=== PATIENT | female | born 1990 | race Caucasian/White ===

== ENCOUNTER 2023-11-25 03:13 | Emergency (ER) | payer OTHER, SELFPAY ==
[2023-11-25 03:20] VITALS: BP 126/94; PULSE 105; RESP 18; TEMP 36.1; O2SAT 99
--- NOTE | 2023-11-25 03:21 | ED.FEMALEGU ---
HPI - Female Genitourinary General Chief complaint: Urogenital-Female Stated complaint: STD Check Time Seen by Provider: 11/25/23 03:21 Source: patient Mode of arrival: ambulatory Limitations: no limitations History of Present Illness HPI Narrative: 32-year-old female presents the stating that her boyfriend tested positive for trichomoniasis. Patient does not have any symptoms but would like to be treated she has had bilateral tubal ligation. She denies prior ST eye. No lesions noted on genitalia. Vaginal discharge: none Vaginal bleeding: none Associated symptoms: denies other symptoms Treatment prior to arrival: none Sexual activity: Yes Patient : No Related Data Home Medications Medication Instructions Recorded Confirmed venlafaxine 150 mg 150 mg PO DAILY 11/25/23 11/25/23 capsule,extended release 24 hr Allergies Allergy/AdvReac Type Severity Reaction Status Date / Time No Known Allergies Allergy Verified 11/25/23 03:20 Review of Systems Review of Systems: All systems reviewed & are unremarkable except as noted in HPI and below PMFSH Past Medical History Medical History (Updated 11/25/23 @ 03:59 by Harman Huntley MD) Depression Exam Const: General: healthy appearing, no acute distress and alert Nutritional Appearance: well nourished Orientation/consciousness: patient oriented x3 Limitations: no limitations HENMT: Head: normal to inspection Ears: external ears normal Face/Nose/Sinus: Normal external nose present Face and sinus: normal facial exam Mouth: Yes Normal oral and palatal mucosa present Throat: posterior oropharynx normal Eyes: Conjunctivae: conjunctivae normal Pupils: Equal, round and reactive pupils present EOM: EOMs intact bilaterally Direct Ophthalmoscopy: no photophobia Neck: Neck: normal visual inspection, no lymphadenopathy and no meningeal signs Chest: Chest palpation & inspection: normal inspection of the chest Resp: Effort & Inspection: normal respiratory effort Auscultation: clear to auscultation bilaterally Cardio: Rate: regular rate Rhythm: regular rhythm GI: GI Palp: Yes Soft to palpation Auscultation: normal bowel sounds : General: Yes no CVA tenderness Back/Spine/Pelvis: Back: no CVA tenderness Skin: General skin exam: normal color Rashes: no rashes Wounds: no wounds Neuro: General: patient oriented x3, moves all extremities, no focal motor deficits and CN's II-XI intact bilaterally Cranial nerves: Yes Nystagmus not present Speech: normal speech Gait exam (Neuro): Normal gait present Extrem: General: normal to inspection, no clubbing, cyanosis or edema and no pedal edema Psych: Appearance: grossly normal Mental Status: mental status grossly normal Affect: normal affect Attitude: cooperative Course Course Emergency Course: sexual exposure warfarin tested positive for trichomonas Vital Signs Vital signs: Vital Signs Temperature 36.1 C L 11/25/23 03:20 Pulse Rate 105 H 11/25/23 03:20 Respiratory Rate 18 11/25/23 03:20 Blood Pressure 126/94 H 11/25/23 03:20 Pulse Oximetry 99 11/25/23 03:20 Oxygen Delivery Room Air 11/25/23 03:20 Temperature 36.1 C L 11/25/23 03:20 Pulse Rate 105 H 11/25/23 03:20 Respiratory Rate 18 11/25/23 03:20 Blood Pressure 126/94 H 11/25/23 03:20 Pulse Oximetry 99 11/25/23 03:20 Oxygen Delivery Room Air 11/25/23 03:20 MDM - Female Genitourinary MDM Narrative Medical decision making narrative: sexual exposure Differential Diagnosis Differential diagnosis: Likely trichomoniasis Lab Data Labs: Urine Characteristics Clear Discharge Plan Discharge Clinical Impression: Sexually transmitted disease exposure Patient Disposition: Home, Self-Care Condition: Stable Instructions: Antibiotic Form, Sexually Transmitted Diseases (ED) Patient Language: Frisian Prescri
[2023-11-25] MEDS: cefTRIAXone 1 GM VIAL 0.5 GM IM (03:58)
[2023-11-25] MEDS: LIDOCAINE HCL 1% LOCAL INJ 10 ML VIAL (03:58)
[2023-11-26 06:51] LABS: Chlamydia trachomatis NOT DETECTED (NOT DETECTE); Neisseria gonorrhoeae PCR DETECTED (NOT DETECTE)
== END 2023-11-25 04:00 | disposition home or self-care (01) ==
PROVIDERS: Emergency Provider Internal Medicine Critical Care Medicine; PCP Family Medicine
DX: Z20.2 Contact with and (suspected) exposure to infections with a predominantly sexual mode of transmission (principal); Z11.3 Encounter for screening for infections with a predominantly sexual mode of transmission
CPT/HCPCS: 87491; 87591; 96372; 99284; J0696

== ENCOUNTER 2025-05-31 13:59 | Emergency (ER) | payer OTHER, SELFPAY ==
--- NOTE | ~2025-05-31 | CT_ITS ---
EXAMINATION: CT diagnostic chest w con DATE: 05/31/2025 15:13 INDICATION: left breast mass/pain TECHNIQUE: Computed tomography (CT) of the chest was performed with 100 mL Omnipaque-350 intravenous contrast. Additional 3D reconstructions utilizing coronal maximum intensity projection (MIP) were per formed. Automated exposure control and iterative reconstruction technique were employed. The dose-junie gth product was 140.17 mGy-cm. COMPARISON: None FINDINGS: Lungs are clear with no focal airspace opacities, pulmonary edema, pleural effusion or pneumothorax. Heart size is normal. No pericardial effusion. Thoracic aorta is normal in caliber with no dissection . No pathologically enlarged thoracic lymphadenopathy. There is asymmetric periareolar skin thickenin g at the left breast as well as slight retraction of the left nipple. Otherwise relatively symmetric underlying soft tissue densities at the bilateral breasts. Visualized upper abdomen is unremarkable. Mild thoracic spondylosis. IMPRESSION: 1. Nonspecific asymmetric left periareolar skin thickening and mild retraction of the left nipple. Di fferential would include mastitis/cellulitis or malignant etiologies including inflammatory breast ca ncer, locally invasive breast cancer or lymphoma. Correlate clinically for signs/symptoms of infectio n and consider mammography and/or breast ultrasound to assess for lesions concerning for malignancy i n the underlying rest tissue. Reviewed, dictated and finalized at location A. IMPRESSION: 1. Nonspecific asymmetric left periareolar skin thickening and mild retraction of the left nipple. Differential would include mastitis/cellulitis or malignant etiologies including inflammatory breast cancer, locally invasive breast cance r or lymphoma. Correlate clinically for signs/symptoms of infection and conside r mammography and/or breast ultrasound to assess for lesions concerning for mal ignancy in the underlying rest tissue.
[2025-05-31 14:00] VITALS: BP 105/74; PULSE 94; RESP 16; TEMP 36.7; O2SAT 96
--- NOTE | 2025-05-31 14:08 | ED_ITS ---
HPI - Skin/Abscess/Foreign Bdy General Chief complaint: Skin/Abscess/Foreign Body Stated complaint: bump on left breast with pain Time Seen by Provider: 05/31/25 14:05 Source: patient and family Mode of arrival: ambulatory Limitations: no limitations History of Present Illness HPI narrative: Patient is a 34-year-old female with a left breast inverted nipple and hard area below the nipple causing patient to have pain lately. About 6 months ago she was warned that she has a inverted nipple and needs a mammogram as soon as possible. She had difficulties with insurance and never got the mammogram done. She never did further follow-up. She came today with some inverted nipple continuation and some skin changes with some hard tissue under the nipple. MD complaint: other ( Left inverted nipple on the breast as well as hard tissue under the area of the nipple for the past 6 months) Onset (ago): month(s) ( 6) Location: chest ( left breast) Severity: moderate Severity scale (1-10): 4 Quality: sharp Pain Consistency: intermittent Relieving factors: none Exacerbating factors: none Context: other ( patient has progressively worsening left breast tissue of inverted nipple and mass underneath the left breast over the past 6 months; patient has been noncompliant with follow-up and she understands that cancer is a possibility and likely diagnosis) Associated symptoms: denies other symptoms Treatments prior to arrival: none Related Data Home Medications ?Medication ?Instructions ?Recorded ?Confirmed ?Last Taken ?Type No Home Medications 05/31/25 05/31/25 Unknown History Allergies Allergy/AdvReac Type Severity Reaction Status Date / Time No Known Allergies Allergy Verified 05/31/25 14:05 Review of Systems 2 Review of Systems: All systems reviewed & are unremarkable except as noted in HPI and below Constitutional: Constitutional: Reports no additional constitutional complaints Eyes: Eyes: Reports no additional eye complaints ENT: Reports system reviewed and no additional complaints, except as documented Cardiovascular: Cardiovascular: Reports no additional cardiovascular complaints Respiratory: Respiratory: Reports no additional respiratory complaints Gastrointestinal: Gastrointestinal: Reports no additional gastrointestinal complaints Genitourinary: Genitourinary: Reports no additional female genitourinary complaints Musculoskeletal: Musculoskeletal: Reports no additional musculoskeletal complaints Integumentary/Breasts: Skin/Breast: Reports system reviewed and no additional complaints, except as docu Neurologic: Reports system reviewed and no additional complaints, except as documented Psychiatric: Psychiatric: Reports no additional psychiatric complaints Endocrine: Endocrine: Reports no additional endocrine complaints Hematologic/Lymphatic: Hematologic/Lymphatic: Reports no additional hematologic/lymphatic complaints Allergic/Immunologic: Allergic/Immunologic: Reports no additional allergic/immunologic complaints PMFSH Past Medical History Medical History Depression Exam 2 Const: General: healthy appearing Nutritional Appearance: well nourished Orientation/consciousness: patient oriented x3 HENMT: Head: normal to inspection Ears: external ears normal F shea/Nose/Sinus: Normal external nose present Eyes: Conjunctivae: conjunctivae normal Pupils: Equal, round and reactive pupils present EOM: EOMs intact bilaterally Neck: Neck: normal visual inspection Chest: Chest palpation & inspection: normal inspection of the chest Other: left breast exam done with female nurse professor of geology shows a inverted left nipple with pew de orange skin changes and a hard mass like circular area underneath the left breast nipple area which is mobile from the soft tissue Resp: Effort & Inspection: normal respiratory effort and not labored A uscultation: clear to auscultation bilaterally and no crackles Cardio: Rate: regular rate Rhythm: regular rhythm Heart sounds: no murmurs GI: Inspection: non-distended GI Palp: Yes Soft to palpation and No Tenderness to palpation present (GI) Auscultation: normal bowel sounds : General: Yes bladder normal to palpation Back/Spine/Pelvis: Back: no CVA tenderness Skin: General skin exam: normal color Rashes: no rashes Wounds: no wounds Neuro: General: patient oriented x3, moves all extremities and no meningeal signs Cranial nerves: Yes Nystagmus not present Speech: normal speech Extrem: General: normal to inspection Psych: Mental Status: mental status grossly normal Affect: normal affect Attitude: cooperative Other: AAO x4 and she has the decision making capacity to completely understand that we discussed she likely has cancer of the left breast and must get mammogram and ultrasound done as soon as possible; we gave her information for a primary doctor to be seen this week and get these 2 studies done as soon as possible; we are unable to get ultrasound at this hour in the emergency room and further we do not do mammogram from the emergency room Course Vital Signs Vital signs: Vital Signs Temperature 36.7 C 05/31/25 14:00 Pulse Rate 94 05/31/25 14:00 Respiratory Rate 16 05/31/25 14:00 Blood Pressure 105/74 05/31/25 14:00 Pulse Oximetry 96 05/31/25 14:00 Oxygen Delivery Room Air 05/31/25 14:00 Temperature 36.7 C 05/31/25 14:00 Pulse Rate 67 05/31/25 15:46 Respiratory Rate 18 05/31/25 15:46 Blood Pressure 124/56 L 05/31/25 15:46 Pulse Oximetry 99 05/31/25 15:46 Oxygen Delivery Room Air 05/31/25 15:46 MDM - Skin/Abscess/Foreign Bdy MDM Narrative Medical decision making narrative: patient is a 34-year-old female with a left breast changes of breast cancer over the past 6 months and failure to follow up properly as instructed. CT scan with contrast of the chest. No signs of infection at this time and chronicity leans more towards a mass and not infection. Labs done and non infectious changes. Lab Data Attestation: I reviewed the patient's lab results. 05/31/25 14:19 05/31/25 14:19 Labs: Lab Results 05/31/25 05/31/25 Range/Units 14:19 14:25 WBC 6.0 (4.8-10.8) K/mm3 RBC 4.04 L (4.20-5.40) M/mm3 Hgb 12.4 (12.0-15.0) g/dL Hct 37.7 (35.0-49.0) % MCV 93.3 (78.0-102.0) fL MCH 30.7 (27.0-31.0) pg MCHC 32.9 (32-36) g/dL RDW 12.5 (11.6-14.4) % Plt Count 269 (150-420) K/mm3 MPV 9.2 (9.2-11.8) fl Immature Gran % (Auto) 0.2 H (0.0-0.0) % Neut % (Auto) 59.1 (50.0-70.0) % Lymph % (Auto) 27.5 (18.0-42.0) % Coke % (Auto) 10.4 (2.0-11.0) % Eos % (Auto) 2.0 (1.0-6.0) % Baso % (Auto) 0.8 (0.0-1.0) % Lymph # (Auto) 1.64 (1.10-4.50) K/mm3 Coke # (Auto) 0.62 (0.10-0.90) K/mm3 Eos # (Auto) 0.12 (0.02-0.50) K/mm3 Baso # (Auto) 0.05 (0.00-0.10) K/mm3 Abs Immat Gran (auto) 0.01 H (0.00-0.00) K/mm3 Absolute Neuts (auto) 3.52 (1.70-7.20) K/mm3 Absolute Nucleated RBC 0.00 (0.00-0.00) K/mm3 Nucleated RBC % 0.0 (0-0.0) % PT 10.7 (9.50-12.1) Seconds INR 1.0 APTT 26.2 (23.9-30.70) Sec Sodium 138 (137-145) mmol/L Potassium 4.1 (3.4-5.0) mmol/L Chloride 105 (98-107) mmol/L Carbon Dioxide 30 (22-30) mmol/L Anion Gap 3 L (4-12) mmol/L BUN 6 L (7-17) mg/dL Creatinine 0.64 L (0.7-1.0) mg/dL Estim Creat Clear Calc 85 ml/min Estimated GFR > 60 (59 - ) Glucose 95 (65-110) mg/dL Calculated Osmolality 283 L (285-295) mOsm/kg Calcium 9.5 (8.4-10.2) mg/dL Total Bilirubin 0.5 (0.2-1.3) mg/dL AST 46 H (14-36) U/L ALT 49 H (6-35) U/L Alkaline Phosphatase 69 (38-126) U/L Total Protein 7.6 (6.3-8.2) g/dL Albumin 4.3 (3.5-5.1) g/dL Urine Test Negative Imaging Data Attestation: I personally reviewed and interpreted this imaging study as follows: Radiologist's impression: CT scan of the chest shows IMPRESSION: 1. Nonspecific asymmetric left periareolar skin thickening and mild retraction of the left nipple. Differential would include mastitis/cellulitis or malignant etiologies including inflammatory breast cancer, locally invasive breast cancer or lymphoma. Correlate clinically for signs/symptoms of infection and consider mammography and/or breast ultrasound to assess for lesions concerning for malignancy in the underlying rest tissue. Discharge Plan Discharge Clinical Impression: Inverted nipple Breast mass Qualifiers: Laterality: left Breast mass location: unspecified quadrant Qualified Code(s): N63.20 - Unspecified lump in the left breast, unspecified quadrant Patient Disposition: Home Condition: Stable Instructions: Breast Mass (ED) Additional Instructions: please make appoint with the primary doctor in the next week so you can get an ultrasound and a mammogram of this left breast. It is very important that you get this testing done to look for cancer of the breast. Do not delay your workup in planning and see the primary doctor in the next week to get these tests done as soon as possible. Patient Language: Indonesian Prescriptions: No Action No Home Medications Follow-up/Referrals: Alpesh,CHERY Sargent [Primary Care Provider] - Time of Disposition: 15:44
[2025-05-31 14:31] LABS: Hematocrit 37.7 % (35.0-49.0); Hemoglobin 12.4 g/dL (12.0-15.0); Immature Granulocyte Percent A 0.2 % (0.0-0.0); Lymphocytes Absolute Auto 1.64 K/mm3 (1.10-4.50); Mean Corpuscular HGB Conc 32.9 g/dL (32-36); Mean Corpuscular Hemoglobin 30.7 pg (27.0-31.0); Mean Corpuscular Volume 93.3 fL (78.0-102.0); Nucleated Red Blood Cells Absolute Auto 0.00 K/mm3 (0.00-0.00); Nucleated Red Blood Cells Perc 0.0 % (0-0.0); Platelet Count Result 269 K/mm3 (150-420); Red Blood Count 4.04 M/mm3 (4.20-5.40); White Blood Count 6.0 K/mm3 (4.8-10.8)
[2025-05-31 14:34] LABS: Pregnancy On Board Control Positive
[2025-05-31 14:41] LABS: Alanine Aminotransferase 49 U/L (6-35); Albumin Level 4.3 g/dL (3.5-5.1); Alkaline Phosphatase 69 U/L (38-126); Anion Gap 3 mmol/L (4-12); Aspartate Amino Transferase 46 U/L (14-36); Bilirubin,Total 0.5 mg/dL (0.2-1.3); Blood Urea Nitrogen 6 mg/dL (7-17); Calcium 9.5 mg/dL (8.4-10.2); Carbon Dioxide 30 mmol/L (22-30); Chloride 105 mmol/L (98-107); Estimated CRCL calculation 85 ml/min; Estimated Glomerular Filt Rate > 60; Glucose 95 mg/dL (65-110); Osmolality Calculated 283 mOsm/kg (285-295); Potassium 4.1 mmol/L (3.4-5.0); Sodium 138 mmol/L (137-145); Total Protein 7.6 g/dL (6.3-8.2)
[2025-05-31 14:44] LABS: INR 1.0; Partial Thromboplastin Time 26.2 Sec (23.9-30.70); Prothrombin Time 10.7 Seconds (9.50-12.1)
--- NOTE | 2025-05-31 14:53 | PC.NURSE ---
Pt to CT scanner with radiology transport.
[2025-05-31 15:46] VITALS: BP 124/56; PULSE 67; RESP 18; O2SAT 99
== END 2025-05-31 15:52 | disposition home or self-care (01) ==
PROVIDERS: Emergency Provider Emergency Medicine; PCP Physician Assistant
DX: N64.59 Other signs and symptoms in breast (principal); N63.20 Unspecified lump in the left breast, unspecified quadrant
CPT/HCPCS: 36415; 71260; 80053; 81025; 85025; 85610; 85730; 99284; Q9967

== ENCOUNTER 2025-06-24 10:02 | Outpatient (CLI) | payer OTHER, SELFPAY ==
--- NOTE | ~2025-06-24 | MMUS_ITS ---
EXAMINATION: MM diagnostic efrain BI w darell, US breast LT complete INDICATION: 34-year old female; with palpable left breast lump which has been present for up to 9 months. COMPARISON: Baseline TECHNIQUE: Digital breast tomosynthesis ML and spot compression with magnification views in CC and MLO of Both breasts were obtained with computer- aided detection to assist in interpretation of the study. A radiopaque skin marker identifies location of the left breast lump. FINDINGS: The breasts are extremely dense, which lowers the sensitivity of mammography. A spiculated mass persists on spot compression views in the inferior medial at anterior depth within the left breast which correlates to the radiopaque skin marker. This lesion extends into the subareolar region retracting the left nipple and associated with diffuse skin thickening of the periareolar region and inferior aspect of the breast. In addition, there is a spiculated mass containing pleomorphic calcifications in the superior lateral at middle to posterior third of the left breast. There is diffuse trabecular thickening. There are prominent lymph nodes seen in the left axilla. In the medial central in middle third of the right breast is a group of punctate calcifications. There are no other suspicious abnormalities identified in the rest of the right breast. LEFT BREAST ULTRASOUND FINDINGS: Left breast: Sonographic evaluation of all 4 quadrants of the left breast was completed. At 7:00, 1 cm from the nipple corresponding to the palpable area identified by the patient, there is a 3.8 x 1.8 cm irregular shaped hypoechoic mass with internal vascularity that extends anterior and lateral into the subareolar region to involve the base of the left nipple. This finding also correlates to a mammographic abnormality. In addition, at 1:00 position within the left breast there is an irregular shaped hypoechoic area that spans 3.9 x 1.4 cm and extends into the 12:00 position. These finding correlates to the spiculated mass containing calcifications in the upper outer left breast seen on the mammogram. Evaluation of the left axilla show multiple prominent lymph nodes with mildly thickened cortex and predominant fatty nael. IMPRESSION: 1. Highly suspicious multifocal LEFT breast masses located in the inferior medial extending into the subareolar region and additional lesions seen in the superior lateral quadrant. Associated thickening of the overlying skin raises suspicion of inflammatory breast cancer which should be correlated clinically. Also extension of the lesion to the base of the nipple raises suspicion of nipple involvement. 2. Indeterminate RIGHT breast media central calcifications. RECOMMENDATIONS: 1. Ultrasound-guided core needle biopsy of the left breast targeting the area of palpable lump at 7:00 and mass at subareolar location and mass in the 1:00 location. 2. Stereotactic core needle biopsy calcifications medial central, right breast. 3. Bilateral breast MR to assess extent of disease. Preferably MRI should be obtained before the biopsies are performed. BI-RADS 5, HIGHLY SUSPICIOUS FOR MALIGNANCY Reviewed, dictated and finalized at location B. IMPRESSION: 1. Highly suspicious multifocal LEFT breast masses located in the inferior med ial extending into the subareolar region and additional lesions seen in the sup erior lateral quadrant. Associated thickening of the overlying skin raises susp icion of inflammatory breast cancer which should be correlated clinically. Also extension of the lesion to the base of the nipple raises suspicion of nipple i nvolvement. 2. Indeterminate RIGHT breast media central calcifications. RECOMMENDATIONS: 1. Ultrasound-guided core needle biopsy of the left breast targeting the area of palpable lump at 7:00 and mass at subareolar location and mass in the 1:00 l ocation. 2. Stereotactic core needle biopsy calcifications medial central, right breast . 3. Bilateral breast MR to assess extent of disease. Preferably MRI should be o btained before the biopsies are performed. BI-RADS 5, HIGHLY SUSPICIOUS FOR MALIGNANCY
--- OUTSIDE RECORDS SUMMARY | 2025-06-24 11:14 | XMS_ITS | Clinical Summary ---
Author Organization [facility] Address [facility] [place] [address] Care Team Providers Care Hearing Aid Consultant Name Role Phone Arie Betts Primary Care Provider [phone] Allergies No known active allergies Medications No known medications Active Problems Problem Noted Date Diagnosed Date Mass of lower outer quadrant of left breast 12/12 Social History Tobacco Use Types Packs/Day Years Used Date Smoking Tobacco: Every Day Cigarettes Smokeless Tobacco: Never Tobacco Cessation:Ready to Q uit: Not Asked; Counseling Given: Not Answered Alcohol Use Standard Drinks/Week Comments Not Currently 0 (1 standard drink = 0.6 oz pur e alcohol) Comments No Sex and Gender Information Value Date Recorded Sex Assigned at Female 12/27/2024 8:54 PM CDT Legal Sex Female 5:48 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 Gender Identity Not on file Sexual Orientation Not on file Last Filed Vital Signs Vital Sign Reading Time Taken Comments Blood Pressure 119/78 12/27/2024 9:11 PM CDT Pulse 98 12/27/2024 9:11 PM CDT Temperature 36.3 C (97.3 F) 12/27/2024 9:11 PM CDT Respiratory Rate 16 12/27/2024 9:11 PM CDT Oxygen Saturation 100% 12/27/2024 9:11 PM CDT Inhaled Oxygen Concentration - - Weight 68 kg (150 lb) 12/27/2024 9:11 PM CDT Height 160 cm (5' 3) 12/27/2024 9:11 PM CDT Body Mass Index 26.57 12/27/2024 9:11 PM CDT Plan of Treatment Health Maintenance Due Date Last Done Comments Cervical Cancer Screening Pa p Smear (Age 30 to 64) Every 3 Years 1989 Annual Physical 1992 Hepatitis C 2007 DTaP, Tdap and Td Vaccines ( 1 - Tdap) 2008 Hepatitis B Vaccines (1 of 3 - 19+ 3-dose series) 2008 Pneumococcal Vaccine: Pediat rics (0 to 5 Years) and At-Risk Patients (6 to 49 Years) (1 of 2 - PCV) 2008 HPV Vaccines (1 - 3-dose SCD M series) 2016 Cervical Cancer Screening Michael castro with HPV Testing (Age 30 to 64) Every 5 Years 2019 Cervical Cancer Screening with HPV 2019 COVID-19 Vaccine (1 - 2023-2 5 season) 2025 Meningococcal B Vaccine Aged Out No l onger eligible based on patient's age to complete this topic Meningococcal Vaccine Aged Out No maryam gagandeep eligible based on patient's age to complete this topic RSV Immunizations Under 20 Months Aged Out No longer eligible based on patient's age to complete this topic Insurance Care Teams Hearing Aid Consultant Relationship Specialty Start Date End Date Arie Betts PA [address] [place] [phone] PCP - General PHYSICIAN LABORER [employer] 12/27/24
--- OUTSIDE RECORDS SUMMARY | 2025-06-24 11:14 | XMS_ITS | Encounter Summary ---
Author Organization [facility] Address [address] [place] [id number] Care Team Providers Care Regulatory Compliance Specialist Name Role Phone Arie Betts Primary Care Provider Encounter Details Date Type Department Care Team (Late st Contact Info) Description 03/21/2019 Abstract [facility] CONVERSION [address] [place] [address] , Generic Conversion, Social History Tobacco Use Types Packs/Day Years Used Date Smoking Tobacco: Never Assessed Comments Unknown Sex and Gender Information Value Date Recorded Sex Assigned at Female 12/27/2024 8:54 PM CDT Legal Sex 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
== END 2025-06-24 10:03 | disposition home or self-care (01) ==
PROVIDERS: PCP Family Medicine; Visit Provider Family Medicine
DX: N63.42 Unspecified lump in left breast, subareolar (principal); N63.24 Unspecified lump in the left breast, lower inner quadrant; N63.21 Unspecified lump in the left breast, upper outer quadrant; R23.4 Changes in skin texture; N64.59 Other signs and symptoms in breast; R92.8 Other abnormal and inconclusive findings on diagnostic imaging of breast; R92.1 Mammographic calcification found on diagnostic imaging of breast
CPT/HCPCS: 76641; 77062; 77066; G0279

== ENCOUNTER 2025-06-28 12:20 | Outpatient (NON) | payer OTHER, SELFPAY ==
--- NOTE | 2025-06-28 | S_PTH ---
PATIENT: Ernestine Bradford LOC: [facility] #:[id number] AGE/SX: 34/F ROOM: RE06/28/[address]: Angelita Car MD : 1990 BED: DIS: 06/28/2025 SPEC #: [id number] RECD: 06/28/25 13:02 STATUS: SALLY REQ #: [id number] TIFFANIE: 06/28/25 00:[address]: Angelita Car DEPT: [facility] Surgical RECD BY: Mabel Ferris ENTERED: 06/28/25 13:02 SP TYPE: Surgical OTHR DR: Yordan White DO Tissues: A - Biopsy Procedures: Hematoxylin and Eosin Stain Gross and Microscopic Level 4 ER-60 NY-60 MIB-60 HER 2-60
--- OUTSIDE RECORDS SUMMARY | 2025-06-28 14:24 | XMS_ITS | Encounter Summary ---
Author Organization [facility] Address [address] [place] [address] Care Team Providers Care Cone Marker Name Role Phone Arie Betts Primary Care Provider [phone] Encounter Details Date Type Department Care Team (Late st Contact Info) Description 03/21/2019 Abstract SFL CONVERSION [address] [place] [address] , Generic Conversion, Social History Tobacco Use Types Packs/Day Years Used Date Smoking Tobacco: Never Assessed Comments Unknown Sex and Gender Information Value Date Recorded Sex Assigned at Female 12/27/2024 8:54 PM CDT Legal Sex Female 5:48 PM CLIENT PROFESSIONAL Gender Identity Not on file Sexual Orientation Not on file documented as of this encounter Plan of Treatment Not on file documented as of this encounter Visit Diagnoses Not on filedocumented in this encounter Care Teams Cone Marker Relationship Specialty Start Date End Date Arie Betts PA [address] [place] [phone] PCP - General PHYSICIAN INSURANCE CLAIMS SUPERVISOR 12/27/24 documented as of this encounter
--- OUTSIDE RECORDS SUMMARY | 2025-06-28 14:24 | XMS_ITS | Clinical Summary ---
Author Organization [facility] Address [facility] [place] [address] Care Team Providers Care Roustabout Hand Name Role Phone Arie Betts Primary Care Provider [phone] Allergies No known active allergies Medications No [...] PM CDT Legal Sex Female 5:48 PM BUTTON SAWYER Gender Identity Not on file Sexual Orientation [...] to complete this topic Insurance Care Teams Roustabout Hand Relationship Specialty Start Date End Date Arie Betts PA [address] [place] [phone] PCP - General PHYSICIAN OB TECH 12/27/24
== END 2025-06-28 12:21 | disposition home or self-care (01) ==
LOC: ANHLAB 12:22
PROVIDERS: PCP Family Medicine; Visit Provider Surgery
DX: N63.20 Unspecified lump in the left breast, unspecified quadrant (principal); N64.53 Retraction of nipple; R92.8 Other abnormal and inconclusive findings on diagnostic imaging of breast
CPT/HCPCS: 88305; 88360

== ENCOUNTER 2025-06-29 13:42 | Outpatient (CLI) | payer OTHER, SELFPAY ==
--- NOTE | ~2025-06-29 | MR_ITS ---
EXAMINATION: MR breast BI wo/w con INDICATION: Palpable left breast lump. TECHNIQUE: Axial VIBRANT pre and dynamic post contrast, Sagittal VIBRANT post contrast, Axial T2 STIR ASSET COMPARISON: Mammogram and left breast ultrasound 06/24/2025 CONTRAST: Multihance, 12 cc BREAST COMPOSITION: The breasts are extremely dense which lowers the sensitivity of mammography. FINDINGS: RIGHT BREAST: There is minimal background parenchymal enhancement. There is a 1.2 cm mass with persistent enhancement in the upper outer quadrant of the right breast, posterior depth. No pathologically enlarged axillary or internal mammary lymph nodes are identified. LEFT BREAST: There is minimal background parenchymal enhancement. Extensive patchy enhancement scattered throughout all 4 quadrants of the left breast. There is skin thickening in the left breast. Enhancement extends into the skin in the left anterior breast There are 2 borderline enlarged left axillary lymph nodes. IMPRESSION: 1. Extensive patchy enhancement scattered throughout all 4 quadrants of the left breast. MRI findings are concerning for multifocal, multicentric malignancy in the left breast. An ultrasound-guided breast biopsy of 2 quadrants in the left breast is recommended for confirmation. 2. Extensive thickening of the skin in the left breast with enhancement in the anterior left breast. A malignant process is suspected. A punch biopsy is recommended. 3. Borderline enlarged left axillary lymph nodes. A second look ultrasound of the left axilla is recommended. 4. There is a 1.2 cm mass in the upper outer quadrant of the right breast, posterior depth. An ultrasound of the upper outer quadrant of the right breast is recommended. BI-RADS 5- Highly suggestive of malignancy Reviewed, dictated and finalized at location Q. IMPRESSION: 1. Extensive patchy enhancement scattered throughout all 4 quadrants of the lef t breast. MRI findings are concerning for multifocal, multicentric malignancy i n the left breast. An ultrasound-guided breast biopsy of 2 quadrants in the lef t breast is recommended for confirmation. 2. Extensive thickening of the skin in the left breast with enhancement in the anterior left breast. A malignant process is suspected. A punch biopsy is recom mended. 3. Borderline enlarged left axillary lymph nodes. A second look ultrasound of t he left axilla is recommended. 4. There is a 1.2 cm mass in the upper outer quadrant of the right breast, post erior depth. An ultrasound of the upper outer quadrant of the right breast is r ecommended. BI-RADS 5- Highly suggestive of malignancy
--- OUTSIDE RECORDS SUMMARY | 2025-06-29 15:25 | XMS_ITS | Clinical Summary ---
Author Organization [facility] Address [facility] [place] [address] Care Team Providers Care Software Support Specialist Name Role Phone Arie Betts Primary Care Provider [phone] Allergies No known active allergies Medications No [...] PM CDT Legal Sex Female 5:48 PM SAP BUSINESS OBJECTS CONSULTANT Gender Identity Not on file Sexual Orientation [...] to complete this topic Insurance Care Teams Software Support Specialist Relationship Specialty Start Date End Date Arie Betts PA [address] [place] [phone] PCP - General PHYSICIAN HOB MILL OPERATOR 12/27/24
--- OUTSIDE RECORDS SUMMARY | 2025-06-29 15:25 | XMS_ITS | Encounter Summary ---
Author Organization [facility] Address [address] [place] [address] Care Team Providers Care Telemarketing Manager Name Role Phone Arie Betts Primary Care Provider [phone] Encounter Details Date Type Department Care Team (Late st Contact Info) Description 03/21/2019 Abstract SFL CONVERSION [address] [place] [address] , Generic Conversion, Social History Tobacco Use Types Packs/Day Years Used Date Smoking Tobacco: Never Assessed Comments Unknown Sex and Gender Information Value Date Recorded Sex Assigned at Female 12/27/2024 8:54 PM CDT Legal Sex Female 5:48 PM IMAGING ANALYST Gender Identity Not on file Sexual Orientation Not on file documented as of this encounter Plan of Treatment Not on file documented as of this encounter Visit Diagnoses Not on filedocumented in this encounter Care Teams Telemarketing Manager Relationship Specialty Start Date End Date Arie Betts PA [address] [place] [phone] PCP - General PHYSICIAN MEDICAL COLLECTIONS 12/27/24 documented as of this encounter
== END 2025-06-29 13:43 | disposition home or self-care (01) ==
LOC: ANHIMG 13:44
PROVIDERS: PCP Family Medicine; Visit Provider Surgery
DX: N63.20 Unspecified lump in the left breast, unspecified quadrant (principal); N64.53 Retraction of nipple; R92.8 Other abnormal and inconclusive findings on diagnostic imaging of breast
CPT/HCPCS: 77049; A9577; C8908

== ENCOUNTER 2025-07-09 08:40 | Outpatient (CLI) | payer OTHER, SELFPAY ==
--- NOTE | ~2025-07-09 | MMUS_ITS ---
PROCEDURE: MM post biopsy diagnostic LT, US breast RT limited, US breast biopsy LT w image, US breast bx add lesion LT CLINICAL HISTORY: 34 years old female with highly suspicious multifocal left breast masses, or presents for ultrasound-guided core needle biopsy procedure. In addition MRI completed on 06/29/2025 showed an enhancing lesion in the upper outer at posterior depth in the right breast for which a Second Look ultrasound was recommended. COMPARISON: Ultrasound and mammogram completed on 06/24/2025. Right breast ultrasound findings: Focus sonographic evaluation of the upper outer quadrant was completed. There is no sonographic correlate to the MRI finding. However the ultrasound examination showed a 1.2 cm cyst at 12:00 location, 2 cm from the nipple and intramammary lymph node in the axillary tail. Additional circumscribed hypoechoic echoic 0.5 cm mass is seen at 10:00, 4 cm from the nipple. None of these lesions correlate to the MRI finding located approximately 7 cm posterior to the nipple. Following informed consent including risks, benefits, and possible complications, the patient was brought to the ultrasound suite. A time-out procedure was performed. A preliminary ultrasound of the left breast was performed, redemonstrating hypoechoic mass containing several echogenic foci in the retroareolar region that extends to involve the nipple. The patient was prepped and draped in the usual sterile fashion. 1% lidocaine was instilled into the subcutaneous tissues. 1% lidocaine without epinephrine was injected into the deep tissues around the lesion. Approximately 10cc lidocaine was administered. A small skin oj was made. 4 core samples were obtained from the lesion at subareolar location through a Lateral approach with a 14-gauge biopsy needle. A post biopsy coil Watton Josse marker was placed at the biopsy site. The patient was prepped and draped in the usual sterile fashion. 1% lidocaine was instilled into the subcutaneous tissues. 1% lidocaine without epinephrine was injected into the deep tissues around the lesion. Approximately 10cc lidocaine was administered. A small skin oj was made. 4 core samples were obtained from a prominent lymph node in the left axilla through a Lateral approach with a 14-gauge biopsy needle. A post biopsy butterfly Watton Josse marker was placed at the biopsy site. IMPRESSION: 1. Successful ultrasound guided biopsy of left breast mass and left axillary abnormal lymph node. 2 post biopsy metal markers placed at the biopsy sites are in good position, which is seen on postprocedural mammogram. 2. No sonographic correlate to the suspicious right breast upper outer quadrant lesion. Recommend biopsy under MRI guidance. The patient tolerated the procedure well without immediate postprocedure complications. The patient was given postprocedural instructions and sent home in stable condition. Pathology results pending. Reviewed, dictated and finalized at location B. IMPRESSION: 1. Successful ultrasound guided biopsy of left breast mass and left axillary ab normal lymph node. 2 post biopsy metal markers placed at the biopsy sites are i n good position, which is seen on postprocedural mammogram. 2. No sonographic correlate to the suspicious right breast upper outer quadrant lesion. Recommend biopsy under MRI guidance. The patient tolerated the procedure well without immediate postprocedure compli cations. The patient was given postprocedural instructions and sent home in sta ble condition. Pathology results pending. IMPRESSION: 1. Successful ultrasound guided biopsy of left breast mass and left axillary ab normal lymph node. 2 post biopsy metal markers placed at the biopsy sites are i n good position, which is seen on postprocedural mammogram. 2. No sonographic correlate to the suspicious right breast upper outer quadrant lesion. Recommend biopsy under MRI guidance. The patient tolerated the procedure well without immediate postprocedure compli cations. The patient was given postprocedural instructions and sent home in sta ble condition. Pathology results pending. IMPRESSION: 1. Successful ultrasound guided biopsy of left breast mass and left axillary ab normal lymph node. 2 post biopsy metal markers placed at the biopsy sites are i n good position, which is seen on postprocedural mammogram. 2. No sonographic correlate to the suspicious right breast upper outer quadrant lesion. Recommend biopsy under MRI guidance. The patient tolerated the procedure well without immediate postprocedure compli cations. The patient was given postprocedural instructions and sent home in sta ble condition. Pathology results pending.
--- OUTSIDE RECORDS SUMMARY | 2025-07-09 08:44 | XMS_ITS | Encounter Summary ---
Author Organization [facility] Address [address] [place] [address] Care Team Providers Care Chief Operator Synthesis Name Role Phone Arie Betts Primary Care Provider [phone] Encounter Details Date Type Department Care Team (Late st Contact Info) Description 03/21/2019 Abstract SFL CONVERSION [address] [place] [address] , Generic Conversion, Social History Tobacco Use Types Packs/Day Years Used Date Smoking Tobacco: Never Assessed Comments Unknown Sex and Gender Information Value Date Recorded Sex Assigned at Female 12/27/2024 8:54 PM CDT Legal Sex Female 5:48 PM SUPERVISOR ORDER TAKERS Gender Identity Not on file Sexual Orientation Not on file documented as of this encounter Plan of Treatment Not on file documented as of this encounter Visit Diagnoses Not on filedocumented in this encounter Care Teams Chief Operator Synthesis Relationship Specialty Start Date End Date Arie Betts PA [address] [place] [phone] PCP - General PHYSICIAN PIZZA HUT ASSISTANT 12/27/24 documented as of this encounter
--- OUTSIDE RECORDS SUMMARY | 2025-07-09 08:44 | XMS_ITS | Clinical Summary ---
Author Organization [facility] Address [facility] [place] [address] Care Team Providers Care Dress Operator Name Role Phone Arie Betts Primary Care Provider [phone] Allergies No known active allergies Medications No [...] PM CDT Legal Sex Female 5:48 PM IN HOME SALES REPRESENTATIVE Gender Identity Not on file Sexual Orientation [...] to complete this topic Insurance Care Teams Dress Operator Relationship Specialty Start Date End Date Arie Betts PA [address] [place] [phone] PCP - General PHYSICIAN EMERGENCY SPILL RESPONSE TECHNICIAN 12/27/24
--- OUTSIDE RECORDS SUMMARY | 2025-07-09 08:44 | XMS_ITS | Clinical Summary ---
Author Organization [facility] Shayy servin [employer] Address [address] [place] [address] Care Team Providers Care Bulk Tank Car Unloader Name Role Phone Unavailable Primary Care Provider Unavailabl e Social History Tobacco Use Types Packs/Day Years Used Date Smoking Tobacco: Never Assessed Comments Unknown Sex and Gender Information Value Date Recorded Sex Assigned at Not on file Legal Sex Female 1:42 PM CDT Gender Identity Not on file Sexual Orientation Not on file Plan of Treatment Upcoming Encounters Date Type Department Care Team (Late st Contact Info) Description 07/23/2025 1:30 PM CDT Office Visit [facility] Oncology and Hematology - Re[facility] [address] [facility] [address] [place] [address] Kwame Barrientos MD [address] [facility] [address] [place] [address] Health Maintenance Due Date Last Done Comments DTAP/TDAP/TD VACCINES (1 - Tdap) 2008 HEPATITIS B VACCINES (1 of 3 - 19+ 3-dose series) 11/15 HPV/Cotest (21-29) 2010 HPV VACCINES (1 - 3-dose SCDM series) 2016 CERVICAL CANCER SCREENING 2019 HPV/Cotest (30-65) 2019 PAP SMEAR 2019 INFLUENZA VACCINE (#1) 2025 Insurance [facility] MEDICAID
--- NOTE | 2025-07-09 11:27 | S_PTH ---
PATIENT: Ernestine Bradford LOC: [facility] U#:[id number] AGE/SX: 34/F ROOM: RE07/09/[address]: Angelita Car MD : 1990 BED: DIS: 07/09/2025 SPEC #: [id number] RECD: 07/09/25 11:43 STATUS: NORMARegis REMarie #: [id number] TIFFANIE: 07/09/25 11:[address]: Angelita Car DEPT: [facility] Surgical RECD BY: Mabel Ferris ENTERED: 07/09/25 11:44 SP TYPE: Surgical OTHR DR: Yordan White DO Tissues: A - Breast Biopsy B - Lymph Node Biopsy Procedures: Unstained Slides Hematoxylin and Eosin Stain E-Cadherin Gross and Microscopic Level 4 ER-60 KY-60 MIB-60 HER 2-60
== END 2025-07-09 08:41 | disposition home or self-care (01) ==
PROVIDERS: PCP Family Medicine; Visit Provider Surgery
DX: C50.912 Malignant neoplasm of unspecified site of left female breast (principal); R92.8 Other abnormal and inconclusive findings on diagnostic imaging of breast
CPT/HCPCS: 19083; 19084; 76642; 77065; 88305; 88342; 88360; A4648

== ENCOUNTER 2025-07-14 15:40 | Outpatient (CLI) | payer OTHER, SELFPAY ==
--- OUTSIDE RECORDS SUMMARY | 2025-07-14 14:30 | XMS_ITS | Encounter Summary ---
Author Organization [facility] Address [address] [place] [address] Care Team Providers Care Dairy Tester Name Role Phone Unavailable Primary Care Provider Unavailabl e Reason for Referral * Eval and Treat (Routine) - Open Specialty Diagnoses / Procedures Referred By Ame peres Referred To Contact Oncology Diagnoses Malignant neoplasm of left breast in female, estrogen receptor positive, unspecified site of breast (CMS/HCC) Procedures [place] OFFICE/OUTPATIENT ESTABLISHED MOD MDM 30 MIN [place] OFFICE/OUTPATIENT NEW MODERATE MDM 45 MINUTES Kwame Barrientos MD [address] [place], [place] [id number] Phone: tel: fax: Referral ID Status Reason Start Date Expiration Date Visits Re quested Visits Authorized [id number] Open 07/14/2025 07/15/2026 1 1 * Echocardiography (Routine) - Open Specialty Diagnoses / Procedures Referred By Ame peres Referred To Contact Diagnoses Malignant neoplasm of left breast in female, estrogen receptor positive, unspecified site of breast (CMS/HCC) Procedures ECHO COMPLETE - CONTRAST AND STRAIN IF INDICATED ECHO COMPLETE - CONTRAST AND STRAIN IF INDICATED IL ECHO TTHRC R-T 2D W/WOM-MODE COMPL SPEC&COLR D [place] MYOCRD STRAIN IMG SPECKLE TRCK ASSMT MYOCRD [facility] [place] TTE W OR WO FOL WCON,DOPPLER Kwame Barrientos MD [address] [place] [phone] Phone: tel: fax: Referral ID Status Reason Start Date Expiration Date Visits Re quested Visits Authorized [id number] Open 07/14/2025 08/14/2026 1 1 * PET Scan (Urgent) - Open Specialty Diagnoses / Procedures Referred By Ame t Referred To Contact Diagnoses Malignant neoplasm of left breast in female, estrogen receptor positive, unspecified site of breast (CMS/HCC) Procedures PET TUMOR OR INFECTION IMG W CT SKB MD Kwame Barrientos MD [facility] [facility] [address] [place] [phone] Phone: tel: fax: Referral ID Status Reason Start Date Expiration Date Visits Re quested Visits Authorized [id number] Open 07/14/2025 08/14/2026 1 1 Encounter Details Date Type Department Care Team (Late st Contact Info) Description 07/14/2025 2:30 PM CDT Office Visit [facility] Oncology and Hematology [address] [address] Kwame Barrientos MD [address] [place] [phone] Malignant neoplasm of left breast in female, estrogen receptor positive, unspecified site of breast (CMS/HCC) (Primary Dx) Social History Tobacco Use Types Packs/Day Years Used Date Smoking Tobacco: Every Day Cigarettes 1 8.1 Started: 06/24/2017 Smokeless Tobacco: Never Alcohol Use Standard Drinks/Week Comments Yes 0 (1 standard drink = 0.6 oz pure alcohol) Occasionally, use to be an alcoholic Comments Unknown Sex and Gender Information Value Date Recorded Sex Assigned at Not on file Legal Sex Female 1:42 PM CDT Gender Identity Not on file Sexual Orientation Not on file documented as of this encounter Last Filed Vital Signs Vital Sign Reading Time Taken Comments Blood Pressure 105/72 07/14/2025 2:30 PM CDT Pulse 86 07/14/2025 2:30 PM CDT Temperature 36.8 C (98.2 F) 07/14/2025 2:30 PM CDT Respiratory Rate 15 07/14/2025 2:30 PM CDT Oxygen Saturation 92% 07/14/2025 2:30 PM CDT Inhaled Oxygen Concentration - - Weight 63 kg (139 lb) 07/14/2025 2:30 PM CDT Height 157.5 cm (5' 2) 07/14/2025 2:30 PM CDT Body Mass Index 25.42 07/14/2025 2:30 PM CDT documented in this encounter Plan of Treatment Upcoming Encounters Date Type Department Care Team (Late st Contact Info) Description 07/16/2025 8:15 AM CDT Appointment [facility] Nuclear Medicine [address] [place] [phone] Kwame Barrientos MD [address] [facility] [address] [place] [phone] 07/23/2025 1:50 PM CDT Telephone Check Up [facility] Oncology and Hematology [facility] [address] [facility] [address] [place] [phone] Kwame Barrientos MD [address] [facility] [address] [place] [phone] Scheduled Orders Name Type Priority Associated Diagnoses Orde r Schedule PET TUMOR OR INFECTION IMG W CT SKB MDTH Imaging Stat Malignant neoplasm of left breast in female, estrogen receptor positive, unspecified site of breast (CMS/HCC) Expected: 07/15/2025, Expires: 07/14/2026 CBC WITH DIFFERENTIAL Lab Stat Malignant neoplasm of left breast in female, estrogen receptor positive, unspecified site of breast (CMS/HCC) Expected: 07/14/2025, Expires: 07/14/2026 COMPREHENSIVE METABOLIC PANEL Lab Stat Malignant neoplasm of left breast in female, estrogen receptor positive, unspecified site of breast (CMS/HCC) Expected: 07/14/2025, Expires: 07/14/2026 CANCER ANTIGEN 15-3 Lab Routine Malignant neoplasm of left breast in female, estrogen receptor positive, unspecified site of breast (CMS/HCC) Expected: 07/14/2025, Expires: 07/14/2026 ECHO COMPLETE - CONTRAST AND STRAIN IF INDICATED Echocardiogram Routine Malignant neoplasm of left breast in female, estrogen receptor positive, unspecified site of breast (CMS/HCC) 1 Occurrences starting 07/14/2025 until 09/13/2026 Scheduled Referrals Name Type Priority Associated Diagnoses Orde r Schedule AMB REFERRAL TO CHEMO TEACHING Outpatient Referral Routine Malignant neoplasm of left breast in female, estrogen receptor positive, unspecified site of breast (CMS/HCC) Ordered: 07/14/2025 documented as of this encounter Visit Diagnoses Diagnosis Malignant neoplasm of left breast in female, estrogen receptor positive, unspecified site of breast (CMS/HCC)- Primary documented in this encounter
--- OUTSIDE RECORDS SUMMARY | 2025-07-14 15:43 | XMS_ITS | Encounter Summary ---
Author Organization [facility] Address [address] [place] [address] Care Team Providers Care Fan Balancer Name Role Phone Arie Betts Primary Care Provider [phone] Encounter Details Date Type Department Care Team (Late st Contact Info) Description 03/21/2019 Abstract SFL CONVERSION [address] [place] [address] , Generic Conversion, Social History Tobacco Use Types Packs/Day Years Used Date Smoking Tobacco: Never Assessed Comments Unknown Sex and Gender Information Value Date Recorded Sex Assigned at Female 12/27/2024 8:54 PM CDT Legal Sex Female 5:48 PM BAG WASHER Gender Identity Not on file Sexual Orientation Not on file documented as of this encounter Plan of Treatment Not on file documented as of this encounter Visit Diagnoses Not on filedocumented in this encounter Care Teams Fan Balancer Relationship Specialty Start Date End Date Arie Betts PA [address] [place] [phone] PCP - General PHYSICIAN ICE PULLER 12/27/24 documented as of this encounter
--- OUTSIDE RECORDS SUMMARY | 2025-07-14 15:43 | XMS_ITS | Clinical Summary ---
Author Organization [facility] Address [facility] [place] [address] Care Team Providers Care Trench Digger Name Role Phone Arie Betts Primary Care Provider [phone] Allergies No known active allergies Medications No [...] PM CDT Legal Sex Female 5:48 PM EDGE BLACKER Gender Identity Not on file Sexual Orientation [...] to complete this topic Insurance Care Teams Trench Digger Relationship Specialty Start Date End Date Arie Betts PA [address] [place] [phone] PCP - General PHYSICIAN ABSTRACTOR 12/27/24
--- OUTSIDE RECORDS SUMMARY | 2025-07-14 15:43 | XMS_ITS | Clinical Summary ---
Author Organization [facility] Shayy servin [facility] Address [address] [facility] [place] [address] Care Team Providers Care Labor Arbitrator Name Role Phone Unavailable Primary Care Provider Unavailabl e Allergies No known active allergies Medications No known medications Active Problems No known active problems Encounters Date Type Department Care Team Description 07/14/2025 2:30 PM CDT Office Visit [facility] Oncology and Hematology - [place] [place] [address] Kwame Barrientos MD Malignant neoplasm of left breast in female, estrogen receptor positive, unspecified site of breast (CMS/HCC) (Primary Dx) from Last 3 Months Family History Medical History Relation Name Comments No Known Problems Brother No Known Problems Child 1 No Known Problems Child 2 No Known Problems Father No Known Problems Mother No Known Problems Sister Relation Name Status Comments Brother Alive Child 1 Alive Child 2 Alive Father Alive Mother Alive Sister Alive Social History Tobacco Use Types Packs/Day Years [...] Mass Index 25.42 07/14/2025 2:30 PM CDT Plan of Treatment Upcoming Encounters Date Type Department Care Team (Late st Contact Info) Description 07/16/2025 8:15 AM CDT Appointment [facility] Nuclear Medicine [address] [place] [id number] Kwame Barrientos MD [address] [place] [address] 07/23/2025 1:50 PM CDT Telephone Check Up [facility] Oncology and Hematology [facility] [address] [facility] [address] [place] [address] Kwame Barrientos MD [address] [place] [address] Health Maintenance Due Date Last Done Comments Pre-Diabetes and Diabetes Screening 1989 DTAP/TDAP/TD VACCINES (1 - Tdap) 2008 HEPATITIS B VACCINES (1 of 3 - 19+ 3-dose series) 11/15 Preventative Visit-Managed Medicaid 2008 HPV/Cotest (21-29) 2010 HPV VACCINES (1 - 3-dose SCDM series) 2016 CERVICAL CANCER SCREENING 2019 HPV/Cotest (30-65) 2019 PAP SMEAR 2019 INFLUENZA VACCINE (#1) 2025 Insurance [facility] MEDICAID [facility] [employer] MEDICAID
[2025-07-14 15:53] LABS: Hematocrit 39.7 % (37.0-47.0); Hemoglobin 13.0 g/dL (12.0-15.0); Immature Granulocyte Percent A 0.2 % (0-0.5); Lymphocytes Absolute Auto 1.96 K/mm3 (0.9-3.2); Mean Corpuscular HGB Conc 32.7 g/dl (32-36); Mean Corpuscular Hemoglobin 30.9 pg (26-34); Mean Corpuscular Volume 94.3 fl (80-100); Nucleated Red Blood Cells Absolute Auto 0.000 K/mm3 (0.0-0.012); Nucleated Red Blood Cells Perc 0.0 % (0.0-0.2); Platelet Count Result 285 k/mm3 (150-375); Red Blood Count 4.21 M/mm3 (4.2-5.4); White Blood Count 5.5 K/mm3 (4.5-10.0)
[2025-07-14 18:48] LABS: Alanine Aminotransferase 80 U/L (6-35); Albumin Level 4.4 g/dL (3.5-5.1); Alkaline Phosphatase 81 U/L (38-126); Anion Gap 8 mmol/L (4-12); Aspartate Amino Transferase 60 U/L (14-36); Bilirubin,Total 0.2 mg/dL (0.2-1.3); Blood Urea Nitrogen 9 mg/dL (7-17); Calcium 9.4 mg/dL (8.4-10.2); Carbon Dioxide 29 mmol/L (22-30); Chloride 101 mmol/L (98-107); Estimated Glomerular Filt Rate > 60; Glucose 80 mg/dL (65-110); Potassium 4.3 mmol/L (3.4-5.0); Sodium 138 mmol/L (137-145); Total Protein 8.6 g/dL (6.3-8.2)
== END 2025-07-14 15:41 | disposition home or self-care (01) ==
LOC: ANHLAB 15:41
PROVIDERS: PCP Family Medicine; Visit Provider Internal Medicine Hematology & Oncology
DX: C50.912 Malignant neoplasm of unspecified site of left female breast (principal); Z17.0 Estrogen receptor positive status [ER+]
CPT/HCPCS: 36415; 80053; 85025; 86300